=== PATIENT | male | born 1990 | race Caucasian/White ===

== ENCOUNTER 2021-07-01 18:17 | Emergency (ER) | payer OTHER, SELFPAY ==
[2021-07-01] MEDS ORDERED: BUPIVACAINE 0.5% PF 10 ML VIAL ONE (21:43)
[2021-07-01] MEDS ORDERED: LIDOCAINE 1% W/EPI 1:100,000 MDV 50 ML VIAL ONE (21:43)
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
[2021-07-01] MEDS ORDERED: DOXYCYCLINE 100 MG CAP PO ONE (23:04)
[2021-07-01] MEDS ORDERED: SMZ./TMP. 800/160 MG TABLET ONE (23:04)
[2021-07-01] MEDS ORDERED: ACETAMINOPHEN 500 MG TAB ONE (23:35)
[2021-07-01] MEDS ORDERED: IBUPROFEN 400 MG TAB ONE (23:36)
[2021-07-01 23:53] VITALS: O2SAT 100
[2021-07-01 23:56] VITALS: BP 114/87; TEMP 97.6
== END 2021-07-01 23:34 | disposition home or self-care (01) ==
LOC: ER 18:17
PROC: 0J970ZZ Drainage of Back Subcutaneous Tissue and Fascia, Open Approach (ICD-10-PCS; principal; 2021-07-01)
DX: L02.212 Cutaneous abscess of back [any part, except buttock and flank] (principal); F17.210 Nicotine dependence, cigarettes, uncomplicated; Z88.5 Allergy status to narcotic agent
CPT/HCPCS: 99283

== ENCOUNTER 2021-07-03 14:05 | Emergency (ER) | payer OTHER, SELFPAY ==
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
[2021-07-03 14:46] VITALS: TEMP 98.9; O2SAT 100
[2021-07-03 14:47] VITALS: BP 118/63
== END 2021-07-03 14:40 | disposition home or self-care (01) ==
LOC: ER 14:05
DX: Z48.01 Encounter for change or removal of surgical wound dressing (principal); Z88.0 Allergy status to penicillin
CPT/HCPCS: 99281